=== PATIENT | female | born 1975 | race Caucasian/White ===

== ENCOUNTER 2019-03-31 23:38 | Emergency (ER) | payer MEDICARE, OTHER ==
[~2019-03-31] VITALS: Ht 162.6 cm; Wt 30.4 kg
[2019-04-01 00:08] VITALS: BP 108/67
[2019-04-01] MEDS ORDERED: SMZ/TMP 800/160MG TABLET. PO ONE (00:15)
[2019-04-01] MEDS ORDERED: HYDROcodone/APAP 5/325MG 1 TAB TABLET PO ONE (00:15)
[2019-04-01 00:49] LABS: BILIRUBIN,URINE SMALL (NEG); CLARITY,URINE CLEAR; COLOR,URINE AMBER; NITRITE,URINE NEGATIVE (NEG); PROTEIN,URINE NEGATIVE (NEG-TRACE)
[2019-04-01 00:57] LABS: BACTERIA,URINE MANY /HPF (0-FEW); RBC,URINE OCC /HPF (0-2); SQUAMOUS EPITHELIAL CELL,UR MOD /LPF
[2019-04-01] MEDS ORDERED: HYDR-3164 PO (01:13)
[2019-04-01] MEDS ORDERED: SULF1TAB24 PO (01:13)
--- NOTE | 2019-04-01 01:13 | PHYS DOC ---
Past Medical History Past Medical History: No Pertinent History Past Surgical History: Cholecystectomy, Other Additional Past Surgical Histo: "breast surgery" Additional Information: 1PPD Alcohol Use: Occasionally Drug Use: Marijuana Adult General Chief Complaint Chief Complaint: MULTIPLE COMPLAINTS [facility] HPI Patient is a 43 year old female who presents with complaining of left arm. Abscess and left flank pain. Patient states she has had painful left axillary abscess for 1 week with drainage of pus for 7 days that gradually getting worse. Patient states had another episode of the same problem previously. Patient denies fever and chills, nausea and vomiting, . Patient also complaining of left flank pain for 6 months as a constant pain and not having appetite and unable to eat for the same time. Review of Systems Review of Systems Constitutional: Denies fever or chills [] Eyes: Denies change in visual acuity, redness, or eye pain [] HENT: Denies nasal congestion or sore throat [] Respiratory: Denies cough or shortness of breath [] Cardiovascular: No additional information not addressed in HPI [] GI: Denies abdominal pain, nausea, vomiting, bloody stools or diarrhea [] : Denies dysuria or hematuria , reports flank pain[] Musculoskeletal: Denies back pain or joint pain [] Integument: Denies rash, reports skin lesions [] Neurologic: Denies headache, focal weakness or sensory changes [] Endocrine: Denies polyuria or polydipsia [] All other systems were reviewed and found to be within normal limits, except as documented in this note. Current Medications Current Medications Current Medications Medications (Trade) Dose Ordered Sig/Fox Start Time Stop Time Status Last Admin Dose Admin Acetaminophen/ Hydrocodone Bitart (Lortab 5/325) 1 tab 1X ONCE 04/01/19 00:15 04/01/19 00:19 DC 04/01/19 00:17 1 TAB Trimethoprim/ Sulfamethoxazole (Bactrim Ds) 1 tab 1X ONCE 04/01/19 00:15 04/01/19 00:19 DC 04/01/19 00:19 1 TAB Allergies Allergies Allergies Coded Allergies Type Severity Reaction Last Updated Verified No Known Drug Allergies 04/01/19 No Physical Exam Physical Exam Constitutional: Well nourished, mild distress, non-toxic appearance, anxious, smell of alcohol on breath, under influence of drugs. [] HENT: Normocephalic, atraumatic. Eyes: PERRLA, EOMI, conjunctiva normal, no discharge. [] Neck: Normal range of motion, no tenderness, supple, no stridor. [] Cardiovascular:Heart rate regular rhythm, no murmur [] Lungs & Thorax: Bilateral breath sounds clear to auscultation [] Abdomen: Bowel sounds normal, soft, no tenderness, no masses, no pulsatile masses. [] Skin: Warm, dry, several small abscess in left axillary area with drainage of pus from one of them Back: No tenderness, no CVA tenderness. [] Extremities: No tenderness, no cyanosis, no clubbing, ROM intact, no edema. [] Neurologic: Alert and oriented X 3, no focal deficits noted. [] Psychologic: Affect anxious, judgement normal, mood normal. [] Current Patient Data Vital Signs Vital Signs Date Time Temp Pulse Resp B/P (MAP) Pulse Ox O2 Delivery O2 Flow Rate FiO2 04/01/19 00:17 95 Room Air 04/01/19 00:08 98.3 96 18 108/67 (81) 98.3 Lab Values Laboratory Tests Test 03/31/19 23:58 04/01/19 00:01 POC Urine HCG, Qualitative Hcg negative (Negative) Urine Collection Type Unknown Urine Color Swati Urine Clarity Clear Urine pH 7.0 Urine Specific [place] 1.010 Urine Protein Negative mg/dL (NEG-TRACE) Urine Glucose (UA) Negative mg/dL (NEG) Urine Ketones (Stick) Negative mg/dL (NEG) Urine Blood Negative (NEG) Urine Nitrite Negative (NEG) Urine Bilirubin Small (NEG) Urine Urobilinogen Dipstick 2.0 mg/dL (0.2 mg/dL) Urine Leukocyte Esterase Trace (NEG) Urine RBC Occ /HPF (0-2) Urine WBC 1-4 /HPF (0-4) Urine Squamous Epithelial Cells Mod /LPF Urine Bacteria Many /HPF (0-FEW) Urine Mucus Mod /LPF EKG EKG [] Radiology/Procedures Radiology/Procedures [] Course & Med Decision Making Course & Med Decision Making Pertinent Labs reviewed. (See chart for details) Evaluation of patient in ER showed 42-year-old female patient with complaining of abscessed area and left subaxillary area for one week and chronic left flank pain. Patient was advised to follow-up with her primary care physician regarding chronic flank pain. Abscess was drained and dressing was applied and patient was advised to follow-up with the primary care physician. Dragon Disclaimer Dragon Disclaimer This electronic medical record was generated, in whole or in part, using a voice recognition dictation system. Departure Departure Impression: Primary Impression: Abscess of axillary region Additional Impression: Flank pain Disposition: HOME, SELF-CARE (at 0110) Condition: IMPROVED Referrals: NO PCP (PCP) Patient Instructions: Abscess, Care After, Chronic Pain Management, Community- Associated MRSA, Flank Pain Additional Instructions: Keep wound clean and dry Change dressing twice a day and as needed Drink plenty of liquids Follow-up with your primary care physician in 3-5 days Return to ER if not getting better Scripts Hydrocodone/Apap 5-325 (NORCO 5-325 TABLET) 1 Each Tablet 1 TAB PO PRN Q6HRS PRN for PAIN, #10 TAB 0 Refills Prov: KAISER GODOY MD 04/01/19 Sulfamethoxazole/Trimethoprim (BACTRIM DS TABLET) 1 Each Tablet 1 TAB PO BID for infection, #14 TAB Prov: KAISER GODOY MD 04/01/19 Incision and Drainage Indication: abscess left axillary area Procedure: The patient was positioned appropriately. Local anesthesia was given with 1% lidocaine left axillary area. An incision was then made over the apex of the lesion and moderate amount of pus material was expressed. The drainage cavity was irrigated. And another abscess. Another abscess of the left subaxillary area was drained with the same manner. The patient�s tetanus status updated as needed. The patient tolerated the procedure well. Complications: none. Problem Qualifiers KAIESR GODOY MD Apr 01, 2019 01:13
== END 2019-04-01 01:25 | disposition home or self-care (01) ==
LOC: ER 23:38
DX: L02.412 Cutaneous abscess of left axilla (principal); R10.9 Unspecified abdominal pain; Z90.49 Acquired absence of other specified parts of digestive tract; F17.200 Nicotine dependence, unspecified, uncomplicated
CPT/HCPCS: 10061; 81001; 81025; 87086; 87186; 99284